=== PATIENT | female | born 1965 | race African-American/Black ===

== ENCOUNTER 2019-12-24 00:25 | Emergency (ER) | payer MEDICAID ==
[~2019-12-24] VITALS: Ht 170.2 cm; Wt 114.0 kg
[2019-12-24] MEDS ORDERED: ACETAMINOPHEN 325MG TABLET PO STA (00:40)
[2019-12-24 01:16] LABS: BASOPHILS % 1.4 % (0.0-2.0); EOSINOPHILS % 2.5 % (0.0-5.0); HEMATOCRIT. 47.9 % (36.0-48.0); HEMOGLOBIN. 16.1 g/dL (12.0-16.0); LYMPHOCYTES % 23.1 % (20.0-50.0); MEAN PLATELET VOLUME 10.1 fl (7.4-10.4); PLATELET 252 x1000/uL (130-400); RED BLOOD CELL COUNT 5.38 mill/uL (4.2-5.4); RED CELL DISTRIBUTION WIDTH 15.8 % (11.6-14.6)
[2019-12-24 01:24] LABS: CHLORIDE 106 mEq/L (98-107)
[2019-12-24] MEDS ORDERED: LORAZEPAM 1MG TABLET PO ONE ×2 (01:30→20:00)
[2019-12-24 03:03] LABS: CLARITY URINE CLOUDY (CLEAR); COLOR URINE DARK YELLOW (YELLOW); KETONES URINE TRACE (NEGATIVE); LEUKOCYTE ESTERASE URINE NEGATIVE (NEGATIVE); NITRITE URINE NEGATIVE (NEGATIVE); OCCULT BLOOD URINE NEGATIVE (NEGATIVE); PH URINE 5.5 (4.5-8.0); PROTEIN URINE 3+ (NEGATIVE); SPECIFIC GRAVITY URINE 1.037 (1.005-1.030)
[2019-12-24 03:12] LABS: *BENZODIAZEPINES SCREEN URINE NEGATIVE (NEGATIVE); *COCAINE SCREEN URINE PRESUMTIVE POSITIVE (NEGATIVE); METHADONE URINE SCREEN NEGATIVE (NEGATIVE); OPIATES URINE SCREEN NEGATIVE (NEGATIVE); PHENCYCLIDINE URINE SCREEN PRESUMTIVE POSITIVE (NEGATIVE)
[2019-12-24 03:13] LABS: *AMPHETAMINES SCREEN URINE NEGATIVE (NEGATIVE); *BARBITURATES SCREEN URINE NEGATIVE (NEGATIVE); CANNABINOID URINE SCREEN PRESUMTIVE POSITIVE (NEGATIVE)
[2019-12-24] MEDS ORDERED: ALBUTEROL (0.083%) 2.5MG/3ML NEB HHN STA (15:19)
[2019-12-24] MEDS ORDERED: IPRATROPIUM BROMIDE (0.02%) 0.5MG/2.5ML NEB HHN STA (15:19)
[2019-12-25 11:38] VITALS: BP 130/81
== END 2019-12-25 12:06 ==
LOC: ER 00:25
DX: Z03.818 Encounter for observation for suspected exposure to other biological agents ruled out (principal); R06.02 Shortness of breath; R07.89 Other chest pain; R45.851 Suicidal ideations; R06.2 Wheezing; R45.1 Restlessness and agitation; F14.10 Cocaine abuse, uncomplicated; F16.10 Hallucinogen abuse, uncomplicated; F12.10 Cannabis abuse, uncomplicated; Z59.0 Homelessness
CPT/HCPCS: 36415; 71045; 80053; 80305; 80307; 80329; 81003; 83880; 84484; 85025; 93005; 94640; 99285; U0003; Z7610

== ENCOUNTER 2020-02-12 22:33 | Emergency (ER) | payer MEDICAID ==
[~2020-02-12] VITALS: Ht 175.3 cm; Wt 142.0 kg
[2020-02-12] MEDS ORDERED: ACETAMINOPHEN 325MG TABLET PO STA (22:58)
[2020-02-12] MEDS ORDERED: PREDNISONE 20MG TABLET PO STA (22:58)
[2020-02-12] MEDS ORDERED: ALBUTEROL (0.083%) 2.5MG/3ML NEB HHN STA (22:58)
[2020-02-12] MEDS ORDERED: IPRATROPIUM BROMIDE (0.02%) 0.5MG/2.5ML NEB HHN STA (22:58)
[2020-02-12 23:47] LABS: CHLORIDE 110 mEq/L (98-107)
[2020-02-12 23:49] LABS: BASOPHILS % 1.1 % (0.0-2.0); EOSINOPHILS % 3.5 % (0.0-5.0); HEMOGLOBIN. 13.3 g/dL (12.0-16.0); LYMPHOCYTES % 29.4 % (20.0-50.0); MEAN CORPUSCULAR HEMOGLOBIN 29.4 pg (28.0-32.0); MEAN CORPUSCULAR VOLUME 90.6 fL (81.0-99.0); MEAN PLATELET VOLUME 9.6 fl (7.4-10.4); MONOCYTES % 8.6 % (2.0-8.0); NEUTROPHILS % 57.4 % (40.0-76.0); PLATELET 175 x1000/uL (130-400); RED BLOOD CELL COUNT 4.52 mill/uL (4.2-5.4); RED CELL DISTRIBUTION WIDTH 16.1 % (11.6-14.6)
[2020-02-13] MEDS ORDERED: PHENYTOIN SODIUM EXTENDED 100MG CAPSULE PO ONE (00:15)
[2020-02-13] MEDS ORDERED: PHENYTOIN 100 MG/4 ML UDC NG ONE (00:15)
[2020-02-13 00:47] VITALS: BP 127/80
[2020-02-13 01:21] LABS: CLARITY URINE CLEAR (CLEAR); COLOR URINE YELLOW (YELLOW); KETONES URINE TRACE (NEGATIVE); LEUKOCYTE ESTERASE URINE TRACE (NEGATIVE); NITRITE URINE NEGATIVE (NEGATIVE); OCCULT BLOOD URINE NEGATIVE (NEGATIVE); PROTEIN URINE NEGATIVE (NEGATIVE); SPECIFIC GRAVITY URINE 1.028 (1.005-1.030)
== END 2020-02-13 00:51 | disposition home or self-care (01) ==
LOC: ER 22:33
DX: J45.901 Unspecified asthma with (acute) exacerbation (principal); G40.909 Epilepsy, unspecified, not intractable, without status epilepticus; E78.00 Pure hypercholesterolemia, unspecified; T42.0X5A Adverse effect of hydantoin derivatives, initial encounter; Y92.9 Unspecified place or not applicable; Z59.0 Homelessness
CPT/HCPCS: 36415; 71045; 80053; 80185; 81003; 85025; 93005; 94640; 99285; J7512; Z7610

== ENCOUNTER 2020-03-20 07:58 | Emergency (ER) | payer MEDICAID ==
[~2020-03-20] VITALS: Ht 172.7 cm; Wt 136.0 kg
[2020-03-20 08:05] VITALS: BP 133/96
[2020-03-20] MEDS ORDERED: ACETAMINOPHEN 325MG TABLET PO ONE (09:15)
== END 2020-03-20 09:47 | disposition left against medical advice (07) ==
LOC: ER 08:08
DX: M25.572 Pain in left ankle and joints of left foot (principal); J45.909 Unspecified asthma, uncomplicated; R56.9 Unspecified convulsions; W01.0XXA Fall on same level from slipping, tripping and stumbling without subsequent striking against object, initial encounter; Y93.9 Activity, unspecified; Y92.9 Unspecified place or not applicable
CPT/HCPCS: 99283